=== PATIENT | female | born 1980 | race Two or more races ===

== ENCOUNTER 2019-03-20 09:30 | Inpatient (IN) | payer OTHER ==
[~2019-03-20] VITALS: Ht 152.4 cm; Wt 59.0 kg
--- NOTE | 2019-03-20 08:13 | Immediate Post-Op Evaluation ---
Immediate Post-Op Evalulation Immediate Post-Op Evalulation Procedure: ACDF C4-5, ADR C5-6 Oren Summers MD Mar 20, 2019 08:13
[~2019-03-20 09:30] MED LIST: Acetaminophen (Non formulary) 100 ML IV ONE; Atropine Sulfate 0.4mg/ml inj IVP PRN; DiphenhydrAMINE 50mg/ml Inj IVP PRN; HYDROcodone/Acetamin 5/325 tab ORAL PRN; HYDROcodone/Acetamin 7.5/325 tab ORAL PRN; Hydromorphone 0.5mg/0.5ml inj IVP PRN; Ketorolac 30mg Inj IV PRN; LORazepam Inj 2mg/ml 1ml IV PRN; LR 1000ml 1,000 ML IVLG SCH; Labetalol 5mg/ml 20ml vial IV PRN; Meperidine 50mg/ml Inj(FOR RIGORS ONLY) IVP PRN; Metoclopramide 10mg/2ml Inj IVP PRN; Midazolam 2mg/2ml Inj IVP PRN; ceFAZolin sod 2 GM in D5W 110 ML IVPB ONE; fentaNYL 100 mcg/2 mL IV PRN; oxyCODONE HCL/Acetaminophen 5/325mg ORAL PRN
[2019-03-20 10:55] VITALS: BP 108/70
--- NOTE | 2019-03-20 11:04 | Pre-Procedure Note/Attestation ---
Pre-Procedure Note/Attestation Complete Prior to Procedure Planned Procedure: not applicable Procedure Narrative: Anterior cervical discectomy and fusion of Cervical 45 and artificial disc replacement of Cervical 56 Indications for Procedure Pre-Operative Diagnosis: herniation of C45,56 Attestation I attest that I discussed the nature of the procedure; its benefits; risks and complications; and alternatives (and the risks and benefits of such alternatives ), prior to the procedure, with the patient (or the patient's legal employer relations representative). I attest that, if there was a reasonable possibility of needing a blood transfusion, the patient (or the patient's legal employer relations representative) was given the [facility] standardized written summary, pursuant to the [place] Blood Safety Act ([place] Health and Safety Code # 1645, as amended). I attest that I re-evaluated the patient just prior to the surgery and that there has been no change in the patient's H&P, except as documented below: Vikash Niño MD Mar 20, 2019 11:04
[2019-03-20] MEDS ORDERED: NS w/KCl 20mEq 1000ml 1,000 ML IV SCH (11:06)
--- NOTE | 2019-03-20 11:06 | Brief Operative Note ---
Immediate Post Operative Note Operative Note Fluids: Vikash Christy MD Mar 20, 2019 11:05
[2019-03-20] MEDS ORDERED: Milk of Magnesia 30ml Ud ORAL PRN (11:15)
[2019-03-20] MEDS ORDERED: HYDROcodone/Acetamin 5/325 tab ORAL PRN (11:15)
[2019-03-20] MEDS ORDERED: Metoclopramide 10mg/2ml Inj IVP PRN (11:15)
[2019-03-20] MEDS ORDERED: HYDROcodone/Acetamin 7.5/325 tab ORAL PRN ×2 (11:15)
[2019-03-20] MEDS ORDERED: HYDROmorphone 1mg/ml Carpuject IVP PRN (11:15)
[2019-03-20] MEDS ORDERED: Chloraseptic Spray 20mL Bottle ORAL PRN (11:15)
[2019-03-20] MEDS ORDERED: Morphine Sulfate 4mg/ml Inj (IV USE ONLY) IV PRN ×2 (11:15)
[2019-03-20] MEDS ORDERED: Morphine Sulfate 2mg/ml Inj(IV/IM USE ONLY) IV PRN (11:15)
[2019-03-20] MEDS ORDERED: Naloxone 0.4mg/ml Inj IVP PRN (11:15)
[2019-03-20] MEDS ORDERED: Dexamethasone 4mg/ml vial IVP SCH (12:00)
[2019-03-20] MEDS ORDERED: ceFAZolin sod 1 GM in D5W 55 ML IV SCH (14:00)
[2019-03-20] MEDS ORDERED: Docusate 100mg cap ORAL SCH (18:00)
[2019-04-24] VITALS (12 sets, daily range): BP systolic 100–127; BP diastolic 62–81
[2019-04-24] MEDS ORDERED: NKM (06:02)
[2019-04-24] MEDS ORDERED: Midazolam 2mg/2ml Inj IVP PRN (06:30)
[2019-04-24] MEDS ORDERED: Ketorolac 30mg Inj IV PRN ×2 (06:30)
[2019-04-24] MEDS ORDERED: Atropine Sulfate 0.4mg/ml inj IVP PRN (06:30)
[2019-04-24] MEDS ORDERED: Hydromorphone 0.5mg/0.5ml inj IVP PRN (06:30)
[2019-04-24] MEDS ORDERED: LR 1000ml 1,000 ML IVLG SCH (06:30)
[2019-04-24] MEDS ORDERED: Acetaminophen (Non formulary) 100 ML IV ONE (06:30)
[2019-04-24] MEDS ORDERED: HYDROcodone/Acetamin 5/325 tab ORAL PRN ×2 (06:30→07:30)
[2019-04-24] MEDS ORDERED: oxyCODONE HCL/Acetaminophen 5/325mg ORAL PRN (06:30)
[2019-04-24] MEDS ORDERED: Labetalol 5mg/ml 20ml vial IV PRN (06:30)
[2019-04-24] MEDS ORDERED: LORazepam Inj 2mg/ml 1ml IV PRN (06:30)
[2019-04-24] MEDS ORDERED: Meperidine 50mg/ml Inj(FOR RIGORS ONLY) IVP PRN (06:30)
[2019-04-24] MEDS ORDERED: DiphenhydrAMINE 50mg/ml Inj IVP PRN (06:30)
[2019-04-24] MEDS ORDERED: fentaNYL 100 mcg/2 mL IV PRN (06:30)
[2019-04-24] MEDS ORDERED: HYDROcodone/Acetamin 7.5/325 tab ORAL PRN ×3 (06:30→07:30)
[2019-04-24] MEDS ORDERED: Metoclopramide 10mg/2ml Inj IVP PRN ×2 (06:30→07:30)
--- NOTE | 2019-04-24 06:31 | Anethesia Preoperative Eval ---
Anesthesia Pre-op PMH/ROS General Date of Evaluation: Apr 24, 2019 Time of Evaluation: 07:16 Anesthesiologist: Kristopher ASA Score: ASA 1 Mallampati Score Class I : Soft palate, uvula, fauces, pillars visible Class II: Soft palate, uvula, fauces visible Class III: Soft palate, base of uvula visible Class IV: Only hard plate visible Mallampati Classification: Class I Surgeon: Renay Diagnosis: Neck Pain Surgical Procedure: ACDF C4-5, ADR C5-6 Anesthesia History: none Family History: no anesthesia problems Allergies: Coded Allergies: No Known Allergies (Unverified , 03/20/19) Medications: see eMAR Patient NPO?: Yes NPO Date: Apr 23, 2019 NPO Time: 1900 Past Medical History PSxH Narrative: TL Anesthesia Pre-op Phys. Exam Physician Exam Last Vital Signs Date Time Temp Pulse Resp B/P (MAP) Pulse Ox O2 Delivery O2 Flow Rate FiO2 04/24/19 05:59 98.1 60 18 100/69 (79) 100 04/24/19 05:56 Room Air Constitutional: NAD Neurologic: CN 2-12 intact Cardiovascular: RRR Respiratory: CTA Gastrointestinal: S/NT/ND Airway Exam Mallampati Score: Class I MO: full ROM: full Teeth: intact Anesthesia Pre-op A/P Labs Urine Test Test 04/24/19 05:20 Urine HCG, Qualitative Negative (NEGATIVE) Risk Assessment & Plan Assessment: ASA 1 Plan: GA, SED, GlideScope Go Status Change Before Surgery: No Pre-Antibiotics Dru Grams Ancef IV Given Within 1 Hr of Incision: Yes Time Given: 07:41 Oren Summers MD Apr 24, 2019 06:31
[2019-04-24] MEDS ORDERED: Vancomycin 1gm vial IVPB ONE (06:33)
[2019-04-24] MEDS ORDERED: Gelfoam Size TOPIC ONE (06:34)
[2019-04-24] MEDS ORDERED: Thrombin 5000 units TOPIC ONE (06:34)
[2019-04-24] MEDS ORDERED: Bacitracin 50000 Units Vial ONE ×2 (06:35→07:16)
--- NOTE | 2019-04-24 06:49 | Immediate Post-Op Evaluation ---
Immediate Post-Op Evalulation Immediate Post-Op Evalulation Procedure: ACDF C4-5, ADR C5-6 Date of Evaluation: Apr 24, 2019 Time of Evaluation: 10:15 IV Fluids: 1000 LR Blood Products: 0 Estimated Blood Loss: 50 Urinary Output: 400 Blood Pressure Systolic: 112 Blood Pressure Diastolic: 73 Pulse Rate: 89 Respiratory Rate: 16 O2 Sat by Pulse Oximetry: 96 Temperature (Fahrenheit): 97.8 Pain Score (1-10): 2 Nausea: No Vomiting: No Complications 0 Patient Status: awake, reacts, patent, extubated, none Hydration Status: adequate Dru grams Ancef IV Given Within 1 Hr of Incision: Yes Time Given: 07:41 Oren Summers MD Apr 24, 2019 06:49
[2019-04-24] MEDS ORDERED: Rocuronium Bromide 50mg/5ml Inj IV ONE (06:54)
[2019-04-24] MEDS ORDERED: Lidocaine 1% Plain 30 ml INJ ONE (06:57)
[2019-04-24] MEDS ORDERED: Lidocaine 1% MPF 10mg/ml 5ml ONE (06:58)
[2019-04-24] MEDS ORDERED: Sodium Chloride 10ml vial INJ ONE (06:58)
[2019-04-24] MEDS ORDERED: Dexamethasone 4mg/ml vial ONE (06:58)
[2019-04-24] MEDS ORDERED: fentaNYL 100 mcg/2 mL IV ONE (06:59)
[2019-04-24] MEDS ORDERED: LR 1000ml ONE (07:00)
[2019-04-24] MEDS ORDERED: NS Irrig 1000ml ONE (07:00)
[2019-04-24] MEDS ORDERED: Sterile Water Irrig 1000ml IRRIG ONE (07:00)
[2019-04-24] MEDS ORDERED: Propofol 1,000mg/ 100ml btl IV ONE (07:00)
[2019-04-24] MEDS ORDERED: Neostigmine 1mg/ml 10ml Inj ONE (07:00)
[2019-04-24] MEDS ORDERED: ceFAZolin sod 2 GM in D5W 110 ML IVPB ONE (07:00)
[2019-04-24] MEDS ORDERED: Naloxone 0.4mg/ml Inj IVP PRN (07:30)
[2019-04-24] MEDS ORDERED: HYDROmorphone 1mg/ml Carpuject IVP PRN (07:30)
[2019-04-24] MEDS ORDERED: Milk of Magnesia 30ml Ud ORAL PRN (07:30)
[2019-04-24] MEDS ORDERED: Morphine Sulfate 2mg/ml Inj(IV/IM USE ONLY) IV PRN (07:30)
[2019-04-24] MEDS ORDERED: Morphine Sulfate 4mg/ml Inj (IV USE ONLY) IV PRN (07:30)
--- NOTE | 2019-04-24 07:35 | Brief Operative Note ---
Immediate Post Operative Note Operative Note Chief Complaint: neck pain and radiculopathy Pre-op Diagnosis: C45 and C56 hnp Procedure: [id number] cervical discectomy and fusion and C56 artificial disc replacement Post-op Diagnosis: same as pre-op Findings: consistent w/pre-op dx studies Surgeon: Renay Mft: Ralph Anesthesiologist: Kristpoher Anesthesia: general Specimen: none Complications: none Condition: stable Fluids: IVF Estimated Blood Loss: minimal Drains: none Implant(s) used?: Yes - Prodisc C sz 5, nuvasive interlock c sz 6 screws 13x3 Vikash Niño MD Apr 24, 2019 07:35
[2019-04-24] MEDS ORDERED: Glycopyrrolate 0.2mg/ml 1ml Vial ONE (09:20)
--- NOTE | 2019-04-24 11:00 | NUR ---
nurse notes received patient from PACU via bed, s/p ACDF C4-5, ADR C5-6, dermabond dressing in placed, ice bag on , no active bleeding noted,patient still sleepy/ drowsy but easily arousable ,no sign of distress, on O2 AT 2lPM via NC, IVF on going, admission routine care done, oriented to the unit, v/s ,neuro check done, plan of care was discussed needs reinforcement , mother at bedside, will continue to monitor patient condition angelito baker
[2019-04-24] MEDS: Morphine Sulfate 4mg/ml Inj (IV USE ONLY) IV PRN ×2 (11:49→21:57)
[2019-04-24] MEDS ORDERED: Chloraseptic Spray 20mL Bottle ORAL PRN (12:30)
[2019-04-24] MEDS: NS w/KCl 20mEq 1000ml 1,000 ML IV SCH ×2 (12:35→23:54)
--- NOTE | 2019-04-24 13:40 | NUR ---
PT NOTE Received MD order for PT evaluation. Per Tran RN patient currently very sleepy, unable to participate with PT evaluation at this time. Will follow up in a.m.
--- NOTE | 2019-04-24 14:34 | Diagnostic Imaging Report ---
INDICATION: Pain, intraoperative TECHNIQUE: Intraoperative imaging Fluoroscopy time: 60.9 seconds Total dose: 0.84050 mGym2 Total number of images: 3 COMPARISON: None FINDINGS: Intraoperative images demonstrate surgical tool projecting at the anterior aspect of the C5-6 disc. Subsequent images document anterior fusion and C4-5 and placement of a disc prosthesis at C5-6 IMPRESSION: Intraoperative imaging, as described
[2019-04-24] MEDS: ceFAZolin sod 1 GM in D5W 55 ML IV SCH ×2 (15:04→23:54)
[2019-04-24] MEDS: Docusate 100mg cap ORAL SCH (17:11)
[2019-04-24] MEDS: Dexamethasone 4mg/ml vial IVP SCH ×2 (17:13→23:54)
--- NOTE | 2019-04-24 18:00 | NUR ---
nurse notes Dr Beach called stated ok to discharge patient lisette, prescription at bedside, will endorse to NOC shift RN angelito baker
--- NOTE | 2019-04-24 19:20 | NUR ---
HAND-OFF: Report given to KASEY Resendiz patient resting comfortably in bed , no sign of distress,IVF on going.denies pain or discomfort kasey Joyner
--- NOTE | 2019-04-24 19:24 | NUR ---
NURSE NOTES: Pt received in bed, A/O X4, no c/o pain or signs of distress, barbadian speaking with her mother at bedside, head of bed elevated, ice pack on the neck, will continue to monitor.
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
[2019-04-25] VITALS: BP 98/57
--- NOTE | 2019-04-25 | Operative Note - Dictated ---
DATE OF OPERATION: 04/24/2019 SURGEON: Vikash Niño MD, Orthopedic Spine Surgeon. [employer] MANAGER: HAM Rausch. PREOPERATIVE DIAGNOSES: 1. Intractable neck pain. 2. Radiculopathy. 3. Herniation, C4-C5, C5-C6. 4. Neural foraminal stenosis C4-C5, C5-C6. 5. Stenosis. POSTOPERATIVE DIAGNOSES: 1. Intractable neck pain. 2. Radiculopathy. 3. Herniation, C4-C5, C5-C6. 4. Neural foraminal stenosis C4-C5, C5-C6. 5. Stenosis. PROCEDURE PERFORMED: 1. Anterior cervical discectomy and artificial disc replacement of C5-C6 using a Synthes Prodisc C 5 height. 2. Anterior cervical discectomy and fusion of C4-C5 Nuvasive Interlock C size 5 PEEK cage and three mm screws and 1 mL Osteocell allograft bone and local autograft. 3. Use of intraoperative microscope. 4. Motor evoked potential monitoring. 5. Somatosensory evoked potential monitoring. 6. Supervision and interpretation of fluoroscopy. COMPLICATIONS: None. ANESTHESIA: General. ESTIMATED BLOOD LOSS: Less than 100 mL. INDICATIONS FOR SURGERY: This patient is a 38-year-old female who has a history of diagnoses as listed above. As of result of this, the patient sustained intractable neck pain, radiculopathy, herniation, C4-C5, C5-C6, neural foraminal stenosis C4-C5, C5-C6, stenosis. We tried a course of conservative management but despite this course there was still a significant component of persistent, recalcitrant neck pain and arm pain. The MRI demonstrated significant neural foraminal compromise secondary to disc herniations at C4-C5, C5-C6. We had a long discussion with Lesly regarding the risks and benefits of surgery. Our discussion included but was not limited to nonoperative management, chiropractic management, another epidural steroid injection as well definitive management in the form of surgery. We recommended an artificial disc replacement of C5-C6 and anterior cervical discectomy and fusion of C4-C5 as final definitive management. We reviewed the risks and benefits of surgery with the patient. Our discussion included a comprehensive review of the clinical issues and the nature of the clinical decision. We reviewed the alternatives, including doing nothing. The patient elected to proceed accordingly with an artificial disc replacement of C5-C6 and anterior cervical discectomy and fusion of C4-C5. We had a long discussion regarding the risks, alternatives and benefits of surgery. Our description of the risks included a discussion in person as well as a signed consent which detailed all pertinent risks from the procedure itself. Briefly, our discussion included but was not limited to infection, bleeding, pseudarthrosis, spinal cord injury, neurovascular injury, dural tear, CSF leak, neuropathy, paralysis, permanent weakness/drop foot/drop arm, paresthesias, blindness, palsy and weakness. The patient understood there may be a need for a revision surgery or additional procedures. Approach-related complications including dysphonia, dysphagia, blindness, permanent vocal cord and neural injury, hematoma, swallowing and breathing difficulty. Medical complications were reviewed including liver, kidney, shock, cardiopulmonary failure, anesthesia complications including , swelling, damage to the musculature, larynx/voice injury or loss, esophagus/throat, trachea, blood vessels and muscles/muscular sprain and lungs/pneumothorax during this surgical procedure; injury to deeper structures may be temporary or permanent. After this review of risks, the patient understood these and elected to proceed. A written and verbal consent was given. We discussed the pros and cons of all the alternatives. We discussed the uncertainties associated with the decision. Afterwards I assessed the patient's understanding and explored their preferences. All questions were answered and no guarantees were given. Medical clearance was obtained prior to surgery. INTRAOPERATIVE FINDINGS: At C4-C5: I found the disc to be soft, not calcified, or thrombosed whatsoever. This is consistent with a disc, which was not degenerative whatsoever. I found there to be a tear in the posterior longitudinal ligament along the posterior aspect of the annular fibrosis with tear that is almost vertical in nature in the left side of the neural foramina. After probing this tear with a Microsect 1-B curette, I noticed a broad-based disc herniation, which was apparently encroaching into the neural foramina left more than right sided. The disc was at appropriate height and not collapsed with bone on bone as would be expected in a degenerative process. There was no apparent spurring noted anteriorly or osteophytes. At C5-C6: At this level, I found the disc to be spongy, not desiccated, dried, or crumbled as would be a typical appearance of a degenerative disc. The disc appeared to be of appropriate disc height not bone on bone or collapsed. Upon resection of the disc and annulus, I found a tear near the posterior annular margins on the left side, which is almost vertical in nature. After probing with a Microsect 1-B and then a 2-B curette, I noted the posterior limb of the disc herniation, which was raised to a larger fragment and disc herniation encroaching on the left neural foramina. This disc upon its removal appeared well vascularized surrounding a disc fragment. Its surface is mobile and easily resected off the neural foramina and not scared down consistent with a new onset of acute fragment not a degenerative fragment, which had been calcified . This was present on the left neural foramina causing encroachment there. DESCRIPTION OF PROCEDURE: Under the benefit of general endotracheal anesthesia and with the assistance of the entire operative team, the patient was moved from the rvillard onto the operative table in the supine position. The head was secured and carefully positioned appropriately. Bilateral arms were secured with GelPads and foam and all bony prominences were padded. For the bilateral lower extremities SCD and MANA hose were placed for DVT prophylaxis. A surgical timeout was called which corroborated our planned procedure of artificial disc replacement of an artificial disc replacement of C5-C6 and anterior cervical discectomy and fusion of C4-C5. Preoperative antibiotics were administered within 30 minutes of the incision for antibiotic prophylaxis. Using lateral fluoroscopic radiography, the operative levels were delineated. Next the wound was prepped and draped with Chlorhexidine and sterile drapes. An incision was based on lateral fluoroscopy and we centered our incision at the C4-C5, C5-C6 Interspace and next using a standard Jackman-Bertrand anterior based approach the incision was taken down through the skin and subcutaneous tissues until the vertebral bodies and their corresponding disc spaces were visualized. A needle was placed into the interspace to confirm placement of the operative interspace and we performed the remainder of procedure under microscopic visualization. Next, using a bipolar and Bovie cautery to ensure meticulous hemostasis, the longus colli was mobilized bilaterally and retractors were placed deep to the longus colli bilaterally to address retraction. Next we turned our attention to the radical anterior discectomy. This was initially performed at C5-C6 first by using a 15 blade scalpel followed by narrow pituitaries and a Microsect 5-B curette was used to denude the endplate of all cartilaginous tissue. Next using a Midas Ta AM8 drillbit the vertebral endplates were denuded of all residual cartilage in a [id number] and layer by layer fashion, and ultimately the posterior uncinate joints bilaterally and posterior osteophytic lips and margins were carefully denuded until clear visualization of the posterior longitudinal ligament was possible. An endplate preparation was performed in the exact same fashion using an intervertebral engineer soils, sequential distraction was obtained throughout the disc space. We saw a tear/rent in the PLL and this was carefully mobilized and dissected using a Microsect 1-B curet until we visualized a discrete disc herniation with compression of the spinal cord as well as neural foramina which was left more than right sided). This neural foraminal compression was carefully resected using a Kerrison-1 and Kerrison-2 rongeurs until complete decompression of the spinal cord was visualized and complete decompression of the neural foramina and nerve root therein as well as the axilla and lateral margin of the nerve root was visualized and subsequently completely decompressed. The family was notified at one hour intervals throughout the procedure to provide for consistent updates. We next turned our attention towards trialing our implant within the disc space. We initially tried size 5 and this Prodisc Cervical spacer fit well in regards to depth and width. This implant was opened and prepared. Next under direct visualization I confirmed excellent fit in respect to the anterior and posterior vertebral bodies, the uncinate joints and in regards to toggle. Once satisfied with this placement on serial AP and lateral fluoroscopy I turned my attention towards cutting our farhan. These were cut in the bones using a reciprocating drill and afterwards all free fragments of bone were irrigated. Next FloSeal was placed into the interspace, then removed in its entirety and the implant was inserted using fluoroscopic guidance. Next the Synthes Prodisc C size 5 ADR was then carefully advanced and secured into the intervertebral space under direct visualization and with supervision of AP and lateral fluoroscopic views. I next turned my attention towards the radical anterior discectomy. This was then performed at C4-C5 first by using a 15 blade scalpel followed by narrow pituitaries and a micro-sect 5-B curette was used to denude the endplate of all cartilaginous tissue. Next using a Midas Ta AM8 drillbit the vertebral endplates were denuded of all cartilaginous tissue in a [id number] and layer by layer fashion, and ultimately the posterior uncinate joints bilaterally and posterior osteophytic lips and margins were carefully denuded until wide and thorough visualization of the posterior longitudinal ligament was possible. At this level the endplate preparation was performed in the exact same fashion using an intervertebral engineer soils, sequential distraction was obtained throughout the disc space. We saw a tear/rent in the PLL and this was carefully mobilized and dissected using a micro-set 1-B curette until we visualized an obvious disc herniation with compression of the spinal cord as well as neural foramina which was left more than right sided. This neural foraminal compression was carefully resected using a Kerrison-1 and Kerrison-2 rongeurs until complete decompression of the spinal cord was visualized and complete decompression of the neural foramina and nerve root therein as well as the axilla and lateral margin of the nerve root was visualized and subsequently completely decompressed. We next turned our attention towards trialing our implant within the disc space. We initially tried size 5 and afterwards size 6 trial from the Nuvasive interlock system at each level, which appeared to be appropriate under AP and lateral fluoroscopy as well as in terms of its height, depth, width and lack of toggle. The PEEK polyetheretherketone interbody cages were then both packed with allograft bone from Osteocel and local autograft bone matrix. Next these were then carefully advanced and secured into their intervertebral spaces under direct visualization and with supervision of AP and lateral fluoroscopic views. We next turned our attention towards plating. Plating was performed at each level with the Nuvasive interlock-C plating system. A total of three screws, size mm in length were inserted and confirmed under AP and lateral fluoroscopy and confirmed to be in excellent position. After a finger sweep we confirmed removal of all sponges. The retractor was removed and we next turned our attention to meticulous hemostasis with FloSeal and bipolar cautery. After the sponge and needle count was again found to be correct with our second count, we next turned our attention to closure. The wound was again copiously irrigated with antibiotic impregnated saline Closure consisted of 4-0 clear nylon for the platysma, and 5-0 clear nylon for the superficial skin. Final skin closure and dressings consisted of Dermabond. Prior to final closure, a final radiograph was obtained which demonstrated the hardware is intact with excellent position throughout. The patient tolerated the procedure well. The patient was carefully extubated after the conclusion of surgery. We discussed the findings of the surgery with the family upon completion of the case. At this point the patient was transferred to the spine floor for further observation. Vikash Niño M.D. DR: SCOT JOB#: [id number] CC:
[2019-04-25 04:00] VITALS: BP 106/67
[2019-04-25] MEDS: Dexamethasone 4mg/ml vial IVP SCH (05:22)
--- NOTE | 2019-04-25 07:18 | NUR ---
HAND-OFF: Report given to KASEY Viera.
--- NOTE | 2019-04-25 07:30 | NUR ---
NURSE NOTES: Pt lying in bed w/mother at bedside, bed in lowest position, and call light within reach. Pt A&Ox4; VSS; neuro checks stable; and in no apparent distress. IV site intact/asymptomatic w/IVF infusing and surgical site C/D/I. Pt presently has no pain and has no complaints or concerns at this time. Will continue to monitor.
[2019-04-25 08:00] VITALS: BP 114/62
[2019-04-25] MEDS: NS w/KCl 20mEq 1000ml 1,000 ML IV SCH (08:19)
[2019-04-25] MEDS: Docusate 100mg cap ORAL SCH (08:19)
[2019-04-25] MEDS: ceFAZolin sod 1 GM in D5W 55 ML IV SCH (08:19)
[2019-04-25 10:28] VITALS: BP 116/72
--- NOTE | 2019-04-25 10:28 | 48 Hour Post Anesthesia Eval ---
Post Anesthesia Evaluation Procedure: ACDF C4-5, ADR C5-6 Date of Evaluation: Apr 25, 2019 Time of Evaluation: 10:26 Blood Pressure Systolic: 116 0: 72 Pulse Rate: 72 Respiratory Rate: 18 Temperature (Fahrenheit): 97.6 O2 Sat by Pulse Oximetry: 98 Airway: patent Nausea: No Vomiting: No Pain Intensity: 2 Hydration Status: adequate Cardiopulmonary Status: stable Mental Status/LOC: patient returned to baseline Follow-up Care/Observations: n/a Post-Anesthesia Complications: none Follow-up care needed: ready to discharge Francisco Steel MD Apr 25, 2019 10:28
--- NOTE | 2019-04-25 11:00 | NUR ---
NURSE NOTES: Escorted pt via w/c down to mother's vehicle w/all belongings accounted for, D/C summary, and pain med Rx; removed IV S/L and ID wristband. Pt already scheduled f/u appt w/Dr. Niño; pt discharged in stable condition.
--- NOTE | 2019-04-28 09:24 | Discharge Summary ---
Discharge Summary Hospital Course Date of Admission Apr 24, 2019 at 05:09 Date of Discharge Apr 25, 2019 at 11:09 Admitting Diagnosis C4-5 and C5-6 herniated nucleus pulposus Reason for Hospitalization: elective surgery JOHN Tamez is a 38 year old female who was admitted on Apr 24, 2019 at 05:09 for C4-5 and C5-6 herniated nucleus pulposus with pain and radiculopathy. Patient was admitted for elective surgery. Consultations 1. Dr Hoang - IM Procedures s// by Dr Niño 1. Anterior cervical discectomy and artificial disc replacement of C5-C6 using a Synthes Prodisc C 5 height. 2. Anterior cervical discectomy and fusion of C4-C5 Nuvasive Interlock C size 5 PEEK cage and three mm screws and 1 mL Osteocell allograft bone and local autograft. 3. Use of intraoperative microscope. 4. Motor evoked potential monitoring. 5. Somatosensory evoked potential monitoring. 6. Supervision and interpretation of fluoroscopy. Hospital Course status post surgery course of recovery uneventful initially IV fluids s/p perioperative antibiotics and steroid neurovascular status closely monitored, remained stable incision with dressing : clean, dry and intact pain management addressed ; pain controlled remained hemodynamically stable ambulated with PT fall precautions maintained; safe for ambulation use of incentive spirometry was encouraged while in the bed tolerated diet , IV fluids discontinued GI prophylaxis provided antiemetics were on board as needed voided freely bowel regimen instituted patient was stable for discharge discharge instructions provided follow up with surgeon in the office FINAL DIAGNOSES: 1. Intractable neck pain. 2. Cervical radiculopathy. 3. Herniation, C4-C5, C5-C6. 4. Neural foraminal stenosis C4-C5, C5-C6. 5. Stenosis. 6. s/p ACDF C4-5, ADR C5-6 PROCEDURE PERFORMED: 1. Anterior cervical discectomy and artificial disc replacement of C5-C6 using a Synthes Prodisc C 5 height. 2. Anterior cervical discectomy and fusion of C4-C5 Nuvasive Interlock C size 5 PEEK cage and three mm screws and 1 mL Osteocell allograft bone and local autograft. 3. Use of intraoperative microscope. 4. Motor evoked potential monitoring. 5. Somatosensory evoked potential monitoring. 6. Supervision and interpretation of fluoroscopy. Discharge Condition Upon Discharge: stable Discharge Disposition Patient was discharged home Discharge Instructions Discharge Instructions Special Instructions I have been assigned to complete a D/C Summary on this account. I was not involved in the patient management Shefali Donahue NP Apr 28, 2019 09:24
== END 2019-04-25 11:09 | disposition home or self-care (01) | DRG 473 ==
LOC: UNDOADMIN 10:07 → SDSOVERFLO 10:07 → 3E 04-24 11:08
PROC: 0RB30ZZ Excision of Cervical Vertebral Disc, Open Approach (ICD-10-PCS; principal; 2019-04-24 07:00)
PROC: 0RG10A0 Fusion of Cervical Vertebral Joint with Interbody Fusion Device, Anterior Approach, Anterior Column, Open Approach (ICD-10-PCS; principal; 2019-04-24 07:00)
PROC: 0RR30JZ Replacement of Cervical Vertebral Disc with Synthetic Substitute, Open Approach (ICD-10-PCS; principal; 2019-04-24 07:00)
DX: M50.121 Cervical disc disorder at C4-C5 level with radiculopathy (principal); M48.02 Spinal stenosis, cervical region; V89.2XXS Person injured in unspecified motor-vehicle accident, traffic, sequela
CPT/HCPCS: 36415; 72040; 76000; 81025; 86850; 86900; 86901; 87081; J2405; J2710